=== PATIENT | female | born 1950 | race Hispanic/Latino ===

== ENCOUNTER → 2022-06-12 | Day surgery (SDC) | payer MEDICARE ==
[~2022-06-12] MED LIST: ATORVASTATIN CA20 MG PO; BALANCED SALT SOLN (OPTH) 15 ML BTL IO ONE; BUPIVACAINE 0.5%/EPI 30 ML SDV INJ ONE; BUPIVACAINE/EPINEPHRINE 0.5% 10 ML SDV INJ ONE; LISINOPRIL10 MG PO; METFORMIN HCL500 MG PO; NEOMYCIN/POLYMYXIN/DEX (OPTH) 3.5 GM TUBE ONE; POVIDONE IODINE 5% (OPTH) 30 ML BTL ONE
[2022-06-12 15:41] VITALS: BP 160/61
== END | disposition home or self-care (01) ==
LOC: OR 11:53
PROVIDERS: ATTEND Ophthalmology
DX: H11.051 Peripheral pterygium, progressive, right eye (principal); I10 Essential (primary) hypertension; E78.5 Hyperlipidemia, unspecified; E11.9 Type 2 diabetes mellitus without complications; Z79.84 Long term (current) use of oral hypoglycemic drugs; Z79.899 Other long term (current) drug therapy
CPT/HCPCS: 36415; 82948; 88304

== ENCOUNTER → 2022-09-11 | Day surgery (SDC) | payer MEDICARE ==
[2022-09-05 11:33] LABS: BASOPHILS # (AUTO) 0.1 (0.0-0.1); BASOPHILS % 0.7 % (0.0-1.0); EOSINOPHILS # (AUTO) 0.1 (0.0-0.4); HEMOGLOBIN 11.9 g/dL (12.0-16.0); LYMPHOCYTES # (AUTO) 2.1 (1.0-3.2); LYMPHOCYTES % 30.6 % (18.0-39.1); MEAN CORPUSCULAR HEMOGLOBIN 28.8 pg (28-32); MEAN CORPUSCULAR HGB CONC 29.8 g/dL (31-35); MEAN CORPUSCULAR VOLUME 96.9 fL (81-99); MONOCYTES # (AUTO) 0.4 (0.2-0.8); MONOCYTES % 6.1 % (4.4-11.3); NEUTROPHILS # (AUTO) 4.2 (2.1-6.9); PLATELET COUNT 302 x10e3/uL (140-360); RED BLOOD COUNT 4.13 x10e6/uL (3.6-5.1); RED CELL DISTRIBUTION WIDTH 12.9 % (11.7-14.4)
[~2022-09-11] MED LIST changes: -BALANCED SALT SOLN (OPTH) 15 ML BTL IO ONE; -BUPIVACAINE 0.5%/EPI 30 ML SDV INJ ONE; -BUPIVACAINE/EPINEPHRINE 0.5% 10 ML SDV INJ ONE; +FENTANYL CITRATE/PF 100MCG/2 ML INJ ONE; -NEOMYCIN/POLYMYXIN/DEX (OPTH) 3.5 GM TUBE ONE; +OR PHACO EYE KIT ONE; -POVIDONE IODINE 5% (OPTH) 30 ML BTL ONE; +PREOP PHACO EYE KIT ONE; +VERAPAMIL HCL 2.5 MG/ML 2 ML VIAL ONE
[2022-09-11 09:00] VITALS: BP 133/73
== END | disposition home or self-care (01) ==
LOC: OR 06:39
PROVIDERS: ATTEND Ophthalmology
DX: H25.12 Age-related nuclear cataract, left eye (principal); E11.9 Type 2 diabetes mellitus without complications; I10 Essential (primary) hypertension; Z01.810 Encounter for preprocedural cardiovascular examination; Z01.812 Encounter for preprocedural laboratory examination; Z79.84 Long term (current) use of oral hypoglycemic drugs; Z79.899 Other long term (current) drug therapy
CPT/HCPCS: 36415; 82948; 85025; 93005; J3010; V2632